=== PATIENT | male | born 1980 | race Caucasian/White ===

== ENCOUNTER 2021-11-22 11:23 | Emergency (ER) | payer BC, OTHER ==
[2021-11-22 11:38] VITALS: BP 139/72; PULSE 96
[2021-11-22 12:46] LABS: CORONAVIRUS COVID-19 NAA NEGATIVE (NEGATIVE)
[2021-11-22] MEDS ORDERED: Iopamidol 755 Mg/ML 100 ML Bottle IVPUSH ONE (13:37)
[2021-11-22] MEDS ORDERED: Sodium Chloride 0.9% 10 ML Syringe FLUSH ONE (13:37)
[2021-11-22] MEDS ORDERED: Iopamidol 755 MG/ML 50 ML Bottle IVPUSH ONE (13:39)
[2021-11-22] MEDS ORDERED: Sodium Chloride 0.9% 100 ML IV SCH (13:45)
== END 2021-11-22 16:01 | disposition home or self-care (01) ==
LOC: JD.ED 11:23 → SUPCPDRO 11:23 → JD.ED 16:01
DX: B34.9 Viral infection, unspecified (principal); Z72.0 Tobacco use; Z20.822 Contact with and (suspected) exposure to COVID-19
CPT/HCPCS: 0240U; 36415; 71045; 71275; 80053; 81001; 84484; 85025; 85379; 86140; 93005; 99284; J3490; Q9967